=== PATIENT | female | born 1995 | race Caucasian/White ===

== ENCOUNTER 2016-09-29 22:03 | Emergency (ER) | payer OTHER ==
[~2016-09-29] VITALS: Ht 172.7 cm; Wt 65.8 kg
[2016-09-29 22:32] VITALS: BP 152/76
--- NOTE | 2016-09-29 23:01 | ED ANKLE/FOOT INJURY COMPLAINT ---
History of Present Illness General Chief Complaint: Foot or Ankle Injury Stated Complaint: PT RT FOOT HAS PAIN Source: patient, family Exam Limitations: no limitations Vital Signs & Intake/Output Vital Signs & Intake/Output Vital Signs Date Time Temp Pulse Resp B/P B/P Pulse O2 O2 Flow FiO2 Mean Ox Delivery Rate 09/292 97.9 79 16 152/76 99 Room Air Allergies Coded Allergies: No Known Allergies (09/29/16) Triage Note: TRIAGE: PT FELT POP IN R FOOT WHILE RUNNING BASES PLAYING SOFTBALL AND NOW UNABLE TO BEAR WEIGHT, ARRIVES WITH OWN CRUTCHES. DECLINES PAIN MEDS OFFERED. +CMS TO AFFECTED FOOT. MODERATE SWELLING TO TOP OF FOOT OBSERVED. Triage Nurses Notes Reviewed? yes : No Patient currently breastfeeds: No HPI: Patient was playing softball and was running [place] [email or web address] [place] when she felt a pop in the dorsal aspect of her right foot right along her first metatarsal. Patient states that she has had 3 prior surgeries and has screws and there. Since then she has been having 6 out of 10 throbbing pain to that same area. There is no radiation. The pain increases with ambulation. Patient denies any other injury. Past History Travel History Traveled to [place] past 21 day No Medical History Any Pertinent Medical History? none Neurological: NONE EENT: NONE Cardiovascular: NONE Respiratory: NONE Gastrointestinal: NONE Hepatic: NONE Renal: NONE Musculoskeletal: NONE Psychiatric: NONE Endocrine: NONE Blood Disorders: NONE Cancer(s): NONE Surgical History Surgical History: RIGHT FOOT SURGERY Psychosocial History What is your primary language Malagasy Tobacco Use: Never used ETOH Use: occasional use Illicit Drug Use: denies illicit drug use Family History Hx Contributory? No Review of Systems Review of Systems Constitutional: Reports: no symptoms. Respiratory: Reports: no symptoms. Cardiovascular: Reports: no symptoms. GI: Reports: no symptoms. Musculoskeletal: Reports: see HPI. Neurological/Psychological: Reports: no symptoms. Immunologic/Allergic: Reports: no symptoms. Physical Exam Physical Exam General Appearance: well developed/nourished, alert, awake, mild distress Eyes: Bilateral: PERRL, EOMI. Neck: normal inspection, supple Cardiovascular/Respiratory: normal breath sounds, normal peripheral pulses, regular rate/rhythm, no respiratory distress Leg/Knee/Thigh Left: normal range of motion, normal inspection Leg/Knee/Thigh Right: normal range of motion, normal inspection Ankle Left: normal inspection, normal range of motion Ankle Right: normal inspection, normal range of motion Foot Left: normal inspection, normal range of motion, NO TENDERNESS, NO SWELLING Foot Right: normal inspection, normal range of motion Neuro/Vascular: normal motor function, normal sensation Psychiatric: awake, alert, oriented x 3 Progress Differential Diagnosis: fracture, sprain, contusion Plan of Care: Orders Procedure Date/time Status URINE 09/29 2230 Complete Laboratory Tests 09/29/162249: Urine Test NEGATIVE Diagnostic Imaging: Viewed by Me: Radiology Read. Discussed w/RAD: Radiology Read. Radiology Impression: PATIENT: RACHEL ZELAYA PRESENT AGE : 20 PATIENT ACCOUNT NO: [id number] : 94 LOCATION: [facility] [place] ORDERING PHYSICIAN: JADEN MARTINEZ MD SERVICE DATE: 09/29/16-2231 EXAM TYPE: RAD - XRY-FOOT COMPLETE, R EXAMINATION: XR FOOT, RIGHT CLINICAL INFORMATION: Pain. Injury. COMPARISON: None TECHNIQUE: AP, lateral, and oblique views of the right foot. FINDINGS: There is fusion of the IP joint of the great toe with a cortical screw extending from distal to proximal. 2 Orthopedic marilee also present in the medial cuneiform. No acute abnormality. No fracture or dislocation. IMPRESSION: No acute abnormality of the right foot. DICTATED BY: ROSY PANDEY MD DATE/TIME DICTATED:09/29/162313 SWEEPING COMPOUND BLENDER:CRISTIAN DATE/TIME TRANSCRIBED:09/29/162313 CONFIDENTIAL, DO NOT COPY WITHOUT APPROPRIATE AUTHORIZATION. <Electronically signed in Other Vendor System> SIGNED BY: ROSY PANDEY MD 09/29/162318 Departure Departure Disposition: HOME OR SELF CARE Condition: Stable Clinical Impression Primary Impression: Right foot sprain Qualifiers: Encounter type: initial encounter Qualified Code: S93.601A - Unspecified sprain of right foot, initial encounter Referrals: ELLA WELCH DO (PCP/Family) Additional Instructions: FOLLOW UP WITH YOUR ORHTOPEDIST RETURN FOR ANY CONCERNS Departure Forms: Customer Survey General Discharge Information
--- NOTE | 2016-09-29 23:19 | RADIOLOGY REPORT ---
EXAMINATION: XR FOOT, RIGHT CLINICAL INFORMATION: Pain. Injury. COMPARISON: None TECHNIQUE: AP, lateral, and oblique views of the right foot. FINDINGS: There is fusion of the IP joint of the great toe with a cortical screw extending from distal to proximal. 2 Orthopedic marilee also present in the medial cuneiform. No acute abnormality. No fracture or dislocation. IMPRESSION: No acute abnormality of the right foot.
== END 2016-09-29 23:41 ==
LOC: ERH 22:03
DX: S93.601A Unspecified sprain of right foot, initial encounter (principal); X58.XXXA Exposure to other specified factors, initial encounter; Y93.02 Activity, running; Y93.64 Activity, baseball; Y92.320 Baseball field as the place of occurrence of the external cause
CPT/HCPCS: 73630-RT; 81025